=== PATIENT | female | born 1975 | race Caucasian/White ===

== ENCOUNTER 2022-09-22 18:15 | Emergency (ER) | payer OTHER ==
[2022-09-22] MEDS ORDERED: Ketorolac Tromethamine 30 MG/ML VIAL ONE (19:41)
[2022-09-22] MEDS ORDERED: Orphenadrine Citrate 60 MG/2 ML VIAL IM SCH (19:45)
== END 2022-09-22 20:05 | disposition home or self-care (01) ==
LOC: CSHERS 18:15
DX: S13.4XXA Sprain of ligaments of cervical spine, initial encounter (principal); F17.210 Nicotine dependence, cigarettes, uncomplicated; V89.2XXA Person injured in unspecified motor-vehicle accident, traffic, initial encounter
CPT/HCPCS: 72125; 96372; J1885; J2360

== ENCOUNTER 2022-11-17 13:26 | Outpatient (CLI) | payer OTHER | END 2022-11-17 13:27 | disposition home or self-care (01) | LOC: CSHMAMMO 13:26 | PROVIDERS: ATTEND Family Medicine | DX: Z12.31 Encounter for screening mammogram for malignant neoplasm of breast (principal); N63.20 Unspecified lump in the left breast, unspecified quadrant; Z98.82 Breast implant status | CPT/HCPCS: 77063; 77067 ==

== ENCOUNTER 2022-11-30 08:27 | Outpatient (CLI) | payer OTHER | END 2022-11-30 08:28 | disposition home or self-care (01) | LOC: CSHMAMMO 08:27 | PROVIDERS: ATTEND Family Medicine | DX: N63.20 Unspecified lump in the left breast, unspecified quadrant (principal) | CPT/HCPCS: G0279 ==

== ENCOUNTER 2023-02-25 15:43 | Emergency (ER) | payer OTHER ==
[~2023-02-25 15:43] MED LIST: Iopamidol 300 61% 100 ML VIAL FS ONE
[2023-02-25 17:40] LABS: ALT (SGPT) 9 U/L (8-55); AST (SGOT) 17 U/L (5-34); Albumin 4.3 g/dL (3.5-5.0); Alkaline Phosphatase 56 U/L (40-110); Anion Gap 14 mmol/L (10-20); BUN (Urea Nitrogen) 14 mg/dL (7.0-18.7); Bilirubin, Total 0.8 mg/dL (0.2-1.2); Calc. Creatinine Clearance 0 mL/min (70-130); Calcium 8.9 mg/dL (7.8-10.44); Carbon Dioxide 22 mmol/L (22-29); Chloride 103 mmol/L (98-107); Estimated GFR 93; Glucose 103 mg/dL (70-105); Potassium 4.2 mmol/L (3.5-5.1); Protein, Total 7.3 g/dL (6.0-8.3); Sodium 135 mmol/L (136-145)
[2023-02-25 17:45] LABS: #Monocytes 0.2 10x3/uL (0.0-1.1); #Neutrophils 8.7 10x3/uL (1.5-8.4); %Basophils 0.1 % (0.0-2.0); %Eosinophils 0.1 % (0.0-6.0); %Lymphocytes 4.3 % (18.0-47.0); %Monocytes 2.3 % (0.0-10.0); Hemoglobin 13.4 g/dL (12.0-15.5); Mean Corpuscular HGB CONC 34.4 g/dL (32.0-36.0); Mean Corpuscular Hemoglobin 32.2 pg (27.0-33.0); Mean Corpuscular Volume 93.8 fl (81.6-98.3); Mean Platelet Volume 10.4 fl (7.4-10.4); Platelet Count 237 10x3/uL (150-450); Red Blood Cell (RBC) Count 4.16 10x6/uL (3.90-5.03); White Blood Cell (WBC) Count 9.4 10x3/uL (3.5-10.5)
[2023-02-25 18:03] LABS: Bilirubin Neg (Negative); Blood, Urine Negative (Negative); Clarity Clear (Clear); Glucose, Urine (Dipstick) Normal (Negative); Ketone, Urine Negative (Negative); Leukocyte Negative (Negative); Nitrite Negative (Negative); Pregnancy Test - Urine (BHCG) Negative (Negative); Pregu Control Background? CLEAR/WHITE (CLR/WHITE); Pregu Control Bar Appear? YES (CONTROL BAR); Protein, Urine (Dipstick) 15 mg/dl (Neg-Trace); Urobilinogen Normal mg/dL (Less than 2)
[2023-02-25 18:20] LABS: Bacteria/HPF Rare-Few HPF (None Seen); CAUTI Indications for Culture Pelvic or flank pain; Mucous/LPF 1+ LPF (<2+); RBC/HPF None Seen HPF (0-3); Squamous Epithelial 0-3 HPF (0-3); WBC/HPF 0-3 HPF (0-3)
[2023-02-25 18:21] LABS: Urine Culture Reflex No No
[2023-02-25] MEDS ORDERED: Ondansetron PF 4 MG/2 ML Vial ONE (18:23)
[2023-02-25] MEDS ORDERED: Ketorolac Tromethamine 30 MG/ML VIAL ONE (18:23)
== END 2023-02-25 18:21 | disposition home or self-care (01) ==
LOC: CSHERS 15:43
DX: K52.9 Noninfective gastroenteritis and colitis, unspecified (principal); F17.210 Nicotine dependence, cigarettes, uncomplicated
CPT/HCPCS: 36415; 74177; 80053; 81001; 81025; 85025; 96361; 96374; 96375; J1885; J2405; Q9967

== ENCOUNTER 2024-12-04 09:23 | Outpatient (CLI) | payer OTHER | END 2024-12-04 09:24 | disposition home or self-care (01) | LOC: CSHMAMMO 09:23 | PROVIDERS: ATTEND Family Medicine | DX: Z12.31 Encounter for screening mammogram for malignant neoplasm of breast (principal); Z98.82 Breast implant status | CPT/HCPCS: 77063; 77067 ==